=== PATIENT | male | born 1945 | race Caucasian/White ===

== ENCOUNTER 2022-06-29 07:38 | Inpatient (IN) | payer MEDICARE ==
[~2022-06-29] VITALS: Ht 180.3 cm; Wt 97.0 kg
[~2022-06-29 07:38] MED LIST: ALLEGRA ALLERG180 MG PO; ASPIRIN CHEWABL81 MG PO; CARBIDOPA-LEVO1 EAC6 PO; CENTRUM SILVER1 EAC1 PO; FLOMAX0.4 MG PO; FLOVENT HF120 PUFFS/ INH; HYDROCODON-ACE1 EAC2 PO; LEVAQUIN750 MG PO; LOPID600 MG PO; LOVAZA1 GM PO; MELATONIN5 M2 PO; METRONIDAZOLE500 MG PO; MIRALAX17 GM PO; MUCINEX 600MG600 MG PO; NORCO 7.5-3251 EACH PO; PROAIR HFA8.5 GM INH; PROBIOTIC OF CHOICE PO; SINGULAIR10 MG PO; SPIRIVA 18MCG18 MCG INH; SUDAFED30 MG PO; SYMBICORT INH; TOPROL XL 25MG25 MG PO; VIAGRA100 MG PO; VITAMIN D325 MC2 PO; XALATAN2.5 ML OU; ZESTRIL5 MG PO; ZOCOR20 MG PO
[2022-06-29 08:27] LABS: BASOPHIL 0.2 % (0-2); EOSINOPHIL 0 % (0-7); HCT 46.5 % (42.0-52.0); HGB 15.9 g/dl (13.2-18.0); LYMPHOCYTE 14.6 % (15-48); MCH 32.4 pg (25.0-31.0); MCHC 34.2 g/dL (32.0-36.0); MCV 94.9 fL (78.0-100.0); MPV 10.4 fL (6.0-9.5); NRBC 0; PLT 192 K/uL (150-400); RDW 11.9 % (11.5-14.0); WBC 6.2 K/uL (4.0-10.5)
[2022-06-29 08:30] LABS: INR 1.08 (0.9-1.2); PROTHROMBIN TIME 13.7 SECONDS (11.9-13.9)
[2022-06-29 08:31] LABS: PTT 30.9 SECONDS (24.9-34.6)
[2022-06-29 09:04] LABS: LACTIC ACID 0.9 mmol/L (0.4-1.9)
[2022-06-29 09:25] LABS: ALBUMIN 3.2 g/dL (3.4-5.0); BILIRUBIN - TOTAL 1.3 mg/dL (0.2-1.0); BUN/CREAT RATIO (CALC) 21.8 RATIO; CREATININE 0.78 mg/dL (0.67-1.17); GLOBULIN (CALCULATION) 3.3 g/dL; TOTAL PROTEIN 6.5 g/dL (6.4-8.2)
[2022-06-29 10:02] LABS: BILIRUBIN NEGATIVE (NEGATIVE); BLOOD NEGATIVE Ery/uL (NEGATIVE); CLARITY CLEAR (CLEAR); COLOR YELLOW (YELLOW); GLUCOSE (U) NORMAL (NORMAL); LEUKOCYTES NEGATIVE Leu/uL (NEGATIVE); NITRITE NEGATIVE (NEGATIVE); PROTEIN 1+ mg/dL (NEGATIVE); SPECIFIC GRAVITY >=1.030 (1.001-1.030)
[2022-06-29 10:11] LABS: MUCOUS TRACE; SQUAMOUS EPITHELIAL CELLS RARE
[2022-06-29] MEDS ORDERED: VENTOLIN HFA18 GM INH (16:45)
[2022-06-29] MEDS ORDERED: CARBIDOPA-LEVO1 EAC6 PO (17:08)
[2022-06-29] MEDS ORDERED: CARBIDOPA-LEVO1 EAC3 PO (17:10)
[2022-06-29] MEDS ORDERED: PROSCAR5 MG PO (17:11)
[2022-06-29] MEDS ORDERED: ALLEGRA ALLERG180 MG PO (17:11)
[2022-06-29] MEDS ORDERED: CENTRUM SILVER1 EAC2 PO (17:11)
[2022-06-29] MEDS ORDERED: GEMFIBROZIL600 MG PO (17:13)
[2022-06-29] MEDS ORDERED: XALATAN2.5 ML OU (17:14)
[2022-06-29] MEDS ORDERED: ZESTRIL5 MG PO (17:15)
[2022-06-29] MEDS ORDERED: TOPROL XL 25MG25 MG PO (17:16)
[2022-06-29] MEDS ORDERED: MELATONIN5 M2 PO (17:16)
[2022-06-29] MEDS ORDERED: SINGULAIR10 MG PO (17:17)
[2022-06-29] MEDS ORDERED: ZOCOR20 MG PO ×2 (17:18→17:52)
[2022-06-29] MEDS ORDERED: FLOMAX0.4 MG PO (17:19)
[2022-06-29] MEDS ORDERED: VITAMIN D3250 MC1 PO (17:20)
[2022-06-29] MEDS ORDERED: TRAZODONE 50MG50 MG PO (17:20)
[2022-06-29] MEDS ORDERED: PAXLOVID 300-11 EACH PO (17:23)
[2022-06-29] MEDS ORDERED: OCUSOFT LID SC1 EAC1 EYEBOTH (17:54)
[2022-06-30 06:16] LABS: HCT 46.5 % (42.0-52.0); HGB 15.5 g/dl (13.2-18.0); MCH 32.7 pg (25.0-31.0); MCHC 33.3 g/dL (32.0-36.0); MCV 98.1 fL (78.0-100.0); MPV 10.3 fL (6.0-9.5); RBC 4.74 M/uL (4.70-6.00); RDW 11.9 % (11.5-14.0); WBC 6.1 K/uL (4.0-10.5)
[2022-06-30 06:41] LABS: ALBUMIN 3.2 g/dL (3.4-5.0); BILIRUBIN - DIRECT 0.2 mg/dL (0.00-0.20); BILIRUBIN - TOTAL 0.9 mg/dL (0.2-1.0); BUN/CREAT RATIO (CALC) 29.8 RATIO; CREATININE 0.84 mg/dL (0.67-1.17); TOTAL PROTEIN 7.2 g/dL (6.4-8.2)
[2022-07-01 06:42] LABS: BASOPHIL 0.4 % (0-2); EOSINOPHIL 0 % (0-7); HGB 14.5 g/dl (13.2-18.0); LYMPHOCYTE 23.5 % (15-48); MCH 32.4 pg (25.0-31.0); MCV 98.2 fL (78.0-100.0); MONOCYTE 11.7 % (0-12); MPV 10.2 fL (6.0-9.5); NRBC 0; PLT 184 K/uL (150-400); RBC 4.48 M/uL (4.70-6.00); RDW 11.9 % (11.5-14.0); WBC 4.9 K/uL (4.0-10.5)
[2022-07-01 07:58] LABS: BUN/CREAT RATIO (CALC) 49.3 RATIO; CREATININE 0.69 mg/dL (0.67-1.17); MAGNESIUM 2.3 mg/dL (1.8-2.4); POTASSIUM 3.5 mmol/L (3.5-5.1)
[2022-07-02] MEDS ORDERED: AMOX TR-K CLV1 EAC4 PO ×2 (13:46→15:47)
[2022-07-02] MEDS ORDERED: VENTOLIN HFA18 GM INH (13:46)
== END 2022-07-02 15:06 | disposition home or self-care (01) | DRG 388 ==
LOC: FER 07:38 → FTCU 10:41 → FMS 10:41 → FTCU 11:43
PROVIDERS: Emergency Medicine; Family Medicine; Internal Medicine; ADMIT Allergy & Immunology Allergy
PROC: 8E0ZXY6 Isolation (ICD-10-PCS; 2022-06-29)
PROC: XW033E5 Introduction of Remdesivir Anti-infective into Peripheral Vein, Percutaneous Approach, New Technology Group 5 (ICD-10-PCS; principal; 2022-06-30)
DX: K56.609 Unspecified intestinal obstruction, unspecified as to partial versus complete obstruction (principal); J96.01 Acute respiratory failure with hypoxia; U07.1 COVID-19; J98.11 Atelectasis; I96 Gangrene, not elsewhere classified; J45.909 Unspecified asthma, uncomplicated; G20 Parkinson's disease; I48.0 Paroxysmal atrial fibrillation; I11.0 Hypertensive heart disease with heart failure; E78.5 Hyperlipidemia, unspecified; I48.91 Unspecified atrial fibrillation; K21.9 Gastro-esophageal reflux disease without esophagitis; N40.0 Benign prostatic hyperplasia without lower urinary tract symptoms; G47.33 Obstructive sleep apnea (adult) (pediatric); F32.A Depression, unspecified; F41.9 Anxiety disorder, unspecified; R13.10 Dysphagia, unspecified; R73.9 Hyperglycemia, unspecified; E80.7 Disorder of bilirubin metabolism, unspecified; K66.0 Peritoneal adhesions (postprocedural) (postinfection); Z90.49 Acquired absence of other specified parts of digestive tract; Z79.82 Long term (current) use of aspirin; Z79.899 Other long term (current) drug therapy
CPT/HCPCS: 36415; 36600; 71045; 71250; 74018; 74250; 80048; 80053; 80076; 81001; 82803; 83036; 83605; 83690; 83735; 84145; 85025; 85610; 85730; 93005; 94010; 94640; 94760; C9399; J0696; J1170; J1650; J2270; J2405; J2920; J7040; J7050; Q9967; U0002